=== PATIENT | female | born 1975 | race Two or more races ===

== ENCOUNTER 2024-02-12 12:28 | Emergency (ER) | payer MEDICAID, OTHER ==
[~2024-02-12] VITALS: Ht 160 cm; Wt 68.8 kg
[~2024-02-12 12:28] MED LIST: BENAZEPRIL; METFORMIN; NIFEDIPINE
[2024-02-12 14:19] VITALS: BP 141/86; PULSE 77; RESP 16; TEMP 98; O2SAT 98
== END 2024-02-12 14:21 | disposition home or self-care (01) ==
LOC: ER 12:28
DX: R09.A9 Foreign body sensation, other site (principal); Z79.899 Other long term (current) drug therapy